=== PATIENT | male | born 1980 | race Caucasian/White ===

== ENCOUNTER 2021-05-05 16:43 | Emergency (ER) | payer SELFPAY ==
[~2021-05-05] VITALS: Ht 175.3 cm; Wt 74.5 kg
[2021-05-05 18:19] VITALS: BP 142/89; PULSE 102; TEMP 98.4
[2021-05-26] MEDS ORDERED: ADDERALL30 MG (09:13)
== END 2021-05-05 18:19 | disposition home or self-care (01) ==
LOC: COL.ER 16:43
DX: S61.412A Laceration without foreign body of left hand, initial encounter (principal); F90.9 Attention-deficit hyperactivity disorder, unspecified type; F17.210 Nicotine dependence, cigarettes, uncomplicated; Z79.899 Other long term (current) drug therapy; W22.8XXA Striking against or struck by other objects, initial encounter

== ENCOUNTER 2021-05-20 08:35 | Day surgery (SDC) | payer SELFPAY ==
[~2021-05-20] VITALS: Ht 175.3 cm; Wt 77.5 kg
--- NOTE | 2021-05-20 09:00 | NUR ---
Patient admitted to room 7 ambulatory and is alert and oriented x3. Urine drug screen done on admit and will await results prior to starting IV and doing pre op medications.
[2021-05-20 09:31] VITALS: BP 113/77; PULSE 73; TEMP 97.9
[2021-05-20 09:35] LABS: TRICYCLIC ANTIDEPRESS URINE NEGATIVE
--- NOTE | 2021-05-20 09:46 | NUR ---
Dr. Moctezuma in the room and is talking with the patient re: results of urine drug screen. Will cancel the patient for today and attempt to reschedule at a later date.
--- NOTE | 2021-05-20 10:05 | NUR ---
Instructed patient to return to the hospital on 05/27/2021 at 0530 for surgery to be done at 0730. Instructed to stay NPO starting at midnight.
--- NOTE | 2021-05-20 10:12 | NUR ---
Escorted to the waiting room where friend was waiting and dismissed to home.
[2021-05-26] MEDS ORDERED: ADDERALL30 MG (09:13)
== END 2021-05-20 10:10 | disposition home or self-care (01) ==
LOC: SDCO 08:35
PROVIDERS: Surgery
DX: K40.90 Unilateral inguinal hernia, without obstruction or gangrene, not specified as recurrent (principal); F90.9 Attention-deficit hyperactivity disorder, unspecified type; Z53.8 Procedure and treatment not carried out for other reasons; Z20.822 Contact with and (suspected) exposure to COVID-19
CPT/HCPCS: J0690; J1100; J2405; J2704; J3010

== ENCOUNTER 2021-05-27 05:56 | Day surgery (SDC) | payer SELFPAY ==
[~2021-05-27] VITALS: Ht 175.3 cm; Wt 73.6 kg
[~2021-05-27 05:56] MED LIST: ADDERALL30 MG
[2021-05-27 06:41] VITALS: BP 118/77; PULSE 68; TEMP 97.7
[2021-05-27] MEDS ORDERED: ULTRAM 50MG TAB50 MG PO (08:47)
[2021-05-27 09:06] VITALS: TEMP 97.7
[2021-05-27 09:25] VITALS: BP 121/81; PULSE 72
--- NOTE | 2021-05-27 09:25 | NUR ---
Patient returns to room 7 per cart from PACU and is awake and alert. Temp 97.7 and room air sats 98%. IV fluis infusing and site is free of redness and swelling. Surgical sites x3 on abdomen covered with Exofen and skin edges well approximated. No drainage noted and abdomen is soft and flat. Drinking water. Patient is asking to go home. Encouraged to attempt to eat and void prior to discharge. Friend in room and talking with the patient.
[2021-05-27 09:40] VITALS: BP 113/70; PULSE 66
--- NOTE | 2021-05-27 09:40 | NUR ---
Agrees to eat pudding and continously asks to go home. Sitting up on cart. Tolerates pudding. Encouraged to attempt to urinate. States "I will at home." Friend states that she will monitor this and bring him to the emergency room if unable to urinate.
--- NOTE | 2021-05-27 09:55 | NUR ---
Dr. Moctezuma notified and patient's desire to be discharged. Maybe discharged without urinating. Patient is dressing self. IV was discontinued and site is free of redness. Dismissal instructions were given and informed that pain pill script was sent to [facility]. Provided office number for questions and concerns.
--- NOTE | 2021-05-27 09:57 | NUR ---
Patient discharged to home driven by spouse and taken to the front door per wheelchair and assisted into vehicle with dismissal instructions in hand.
== END 2021-05-27 09:57 | disposition home or self-care (01) ==
LOC: SDCO 05:56
DX: K40.90 Unilateral inguinal hernia, without obstruction or gangrene, not specified as recurrent (principal); K21.9 Gastro-esophageal reflux disease without esophagitis; F90.9 Attention-deficit hyperactivity disorder, unspecified type; F17.210 Nicotine dependence, cigarettes, uncomplicated; Z79.899 Other long term (current) drug therapy
CPT/HCPCS: C1781; J0330; J1100; J1885; J2250; J2405; J2704; J3010; J7120